=== PATIENT | female | born 1965 | race Caucasian/White ===

== ENCOUNTER → 2017-10-18 | Outpatient (REF) | payer BC ==
[~2017-10-18] MED LIST: ACET-3017 PO; ALPR-429 PO; ALPR-448 PO; AMIT-108 PO; AMOX-559 PO; AZIT-1 PO; AZIT-18 PO; BENZ100C26 PO; BENZ100C4 PO; BUSP15TA69 PO; BUSP7.5T7 PO; CARI250T10 PO; CEFU250T67 PO; CHOL100059 PO; CITA-141 PO; CITA-156 PO; CLON-327 PO; CODE118S5 PO; DIAZ2TAB74 PO; ESC10 PO; ESCI20TA38 PO; ESTR0.5T16 PO; ESTR1PAT18 TD; ESTR1PAT66 TD; ESTR1PAT69 TD; FLUT16SP20 NS; FLUT9.9S; GABA-549 PO; GUAI120L3 PO; HERB1CAP PO; HYDR-385 PO; HYDR-4305 PO; HYDR-4308 PO; IBUP600T22 PO; LEVO-85 PO; LEVO25TA61 PO; LEVO50TA86 PO; LEVO75TA73 PO; LOR5/325 PO; LUTE40CA PO; MELO-205 PO; MELO-207 PO; METF-415 PO; METH4TAB66 PO; MILK140C3 PO; MULT-1101 PO; ONDA4TAB97 PO; OXYC-373 PO; OXYC-823 PO; OXYC-865 PO; PARO10TA80 PO; PREG50CA48 PO; Return to work; SERT-1 PO; TRAM-420 PO; TRAZ-156 PO; TRAZ-163 PO; ZOLP-1 PO; ZOLP-360 PO
[2017-10-18 13:54] LABS: PLATELET COUNT, AUTOMATED 186 K/uL (150-450)
== END ==
PROVIDERS: ATTEND Family Medicine
DX: R10.9 Unspecified abdominal pain (principal)
CPT/HCPCS: 82040; 82247; 82310; 82374; 82435; 82565; 82947; 84075; 84132; 84155; 84295; 84450; 84460; 84520; 85025

== ENCOUNTER → 2017-10-30 | Outpatient (CLI) | payer BC ==
--- NOTE | 2017-10-30 10:17 | RADIOLOGY IMAGING REPORT ---
FACILITY: [facility] - [place] PATIENT NAME: Samantha Salcedo : 1965 MR: [id number] V: [id number] EXAM DATE: ORDERING PHYSICIAN: ROBERTA GOMEZ TECHNOLOGIST: [facility] Patient: Samantha Salcedo : 1965 Visit/Account:[id number] Date of Sevice: 10/30/2017 KNEE LEFT W/O CONTRAST COMPARISON: None. HISTORY: Left knee pain with history of torn meniscus.. TECHNIQUE: Noncontrast multiplanar MRI of the left knee utilizing T1 weighted and fluid sensitive se quences. CONTRAST: None. FINDINGS: FLUID: There is no effusion or Kent's cyst. MENISCI: Abnormal intermediate signal in the posterior horn of the medial meniscus on series 4 image 13, with small components extending to the superior and inferior articular surface, confirmed on cor onal series 5 image 19 and 18. In the absence of a previous surgical history this is consistent with a tear. There is no meniscal extrusion or flipped fragment. The lateral meniscus is intact. TENDONS/LIGAMENTS: The cruciate and medial collateral ligaments, lateral collateral ligamentous comp daphnie and extensor mechanism are intact. The biceps and popliteus tendons are intact. The medial and l ateral retinacula are intact. MUSCLES: There is no muscle atrophy or edema. CARTILAGE: No full-thickness cartilage defects are seen. BONES: Normal marrow signal and alignment. OTHER: Negative. IMPRESSION: 1. There is abnormal signal in the posterior horn of the medial meniscus. In the absence of previous meniscal surgery this is consistent with a tear which has small component extending to the superior and inferior articular surface. 2. Otherwise unremarkable left knee. Report Dictated By: Alvin Dwyer at 10/30/2017 9:43 AM Report E-Signed By: Alvin Dwyer at 10/30/2017 10:12 AM WSN:[id number]
== END ==
LOC: MRI 08:37
PROVIDERS: ATTEND Orthopaedic Surgery
DX: M25.562 Pain in left knee (principal)

== ENCOUNTER → 2018-02-12 | Outpatient (CLI) | payer BC ==
[2018-02-12 13:10] LABS: LDL CHOLESTEROL 70 mg/dl
== END ==
LOC: LAB 12:37
PROVIDERS: ATTEND Nurse Practitioner Primary Care
DX: R73.03 Prediabetes (principal); E78.00 Pure hypercholesterolemia, unspecified; E03.9 Hypothyroidism, unspecified
CPT/HCPCS: 36415; 82040; 82247; 82310; 82374; 82435; 82465; 82565; 82947; 83036; 83718; 84075; 84132; 84155; 84295; 84443; 84450; 84460; 84478; 84520

== ENCOUNTER 2018-04-21 01:16 | Observation (INO) | payer BC ==
[~2018-04-21] VITALS: Ht 165.1 cm; Wt 103.4 kg
[2018-04-21] VITALS (13 sets, daily range): BP systolic 54–159; BP diastolic 41–99
[~2018-04-21 01:16] MED LIST changes: +ESTR0.62 PO; +HYDR-4225 PO; +PRED20TA6 PO; +PROM5SYR PO; -TRAZ-156 PO; -TRAZ-163 PO; +TRAZ100T31 PO; +TRAZ50TA34 PO
[2018-04-21] MEDS ORDERED: FAMOTIDINE 20 MG TAB ONE (05:11)
[2018-04-21] MEDS ORDERED: LIDOCAINE/SOD BICARB 8.4% SYR ID ONE (06:30)
[2018-04-21] MEDS ORDERED: FAMOTIDINE 20 MG/50 ML PREMIX IVPB ONE (06:30)
[2018-04-21] MEDS ORDERED: MIDAZOLAM 2 MG/2 ML VIAL IVP PRN (06:30)
[2018-04-21] MEDS ORDERED: fentaNYL CITR 100 MCG/2 ML AMP ONE ×3 (07:21→12:58)
[2018-04-21] MEDS ORDERED: DEXAMETHASONE SOD 4 MG/ML VIAL ONE (07:21)
[2018-04-21] MEDS ORDERED: ONDANSETRON 4 MG/2 ML VIAL ONE (07:21)
[2018-04-21] MEDS ORDERED: PROPOFOL EMUL(*) 10MG/ML 20 ML 20 ML ONE (07:21)
[2018-04-21] MEDS ORDERED: LIDOCAINE MPF 1% 5 ML VIAL ONE (07:21)
[2018-04-21] MEDS ORDERED: KETAMINE HCL 200 MG/20 ML MDV ONE (07:23)
[2018-04-21 07:36] LABS: PLATELET COUNT, AUTOMATED 167 K/uL (150-450)
[2018-04-21] MEDS: NORMOSOL R SOLN(*) 1000 ML BAG 1,000 ML IV PRN ×2 (07:43→13:02)
[2018-04-21] MEDS ORDERED: ONDANSETRON 4 MG/2 ML VIAL IVP ONE (08:10)
[2018-04-21] MEDS ORDERED: ROPIVACAINE 0.2% 20 ML VIAL ONE (08:19)
[2018-04-21] MEDS ORDERED: NS(*) 0.9% 100 ML BAG 100 ML ONE (08:19)
[2018-04-21] MEDS ORDERED: ESTROGENS CONJ VAG CREAM 30 GM TUBE PV ONE (08:19)
[2018-04-21] MEDS ORDERED: VASOPRESSIN 20 UNIT/ML VIAL ONE (08:19)
[2018-04-21] MEDS ORDERED: ROCURONIUM BROM 10 MG/ML 10 ML ONE (10:15)
[2018-04-21] MEDS ORDERED: HYDROmorphone HCL 2 MG/ML SDV ONE ×3 (10:36→14:09)
[2018-04-21] MEDS ORDERED: NS 0.9% 20 ML SDV 20 ML ONE (10:36)
[2018-04-21] MEDS ORDERED: SUGAMMADEX SOD 500 MG/5 ML SDV ONE (10:39)
[2018-04-21] MEDS ORDERED: INFLUENZA VIRUS VAC 0.5 ML SYR IM ONE (12:45)
[2018-04-21] MEDS ORDERED: ZOLPIDEM TARTRATE 10 MG TAB PO PRN (12:45)
[2018-04-21] MEDS ORDERED: ACETAMINOPHEN 325 MG TAB PO PRN (12:45)
[2018-04-21] MEDS ORDERED: ONDANSETRON 4 MG/2 ML VIAL IV PRN (12:45)
[2018-04-21] MEDS ORDERED: SIMETHICONE 80 MG CHEW CHEW PRN (12:45)
[2018-04-21] MEDS ORDERED: PROMETHAZINE 25 MG/ML 1 ML AMP IVP PRN (12:45)
--- NOTE | 2018-04-21 12:53 | Post Operative Note ---
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 Operative Day Date: Apr 21, 2018 Time: 12:47 Physicians Surgeon: Mark Retail Administrative Assistant: Tamara Marcelino Anesthesia: GETA Diagnosis Pre-Op Diagnosis: Rectocele Cystocele TORY Outlet obstruction constipation Post-Op Diagnosis: Same Enterocele Procedure Findings: enterocele Procedure(s): Uterosacral ligament suspension anterior colporrhaphy posterior colporrhaphy transobturator midurethropexy Specimen Removed:(Maybe N/A): none Complications: none #[id number] Fluids Fluids: 1900 ml Estimated Blood Loss: 200 ml Dictated Date OP Note Dictated: Apr 21, 2018 Time OP Note Dictated: 12:52 Copies to: MARIAH KABA MD, TRAVIS MD Apr 21, 2018 12:53
[2018-04-21] MEDS: KETOROLAC 30 MG/ML VIAL IVP SCH ×2 (13:44→19:40)
--- NOTE | 2018-04-21 14:33 | OPERATIVE REPORT 1 ---
EVENT DATE: April 21, 2018 SURGEON: Evan Flores MD ANESTHESIOLOGIST: Dax Baltazar MD ANESTHESIA: General endotracheal. MAINTENANCE SPECIALIST: Tamara Marcelino PA-C PREOPERATIVE DIAGNOSIS 1. Prior hysterectomy and bilateral salpingo-oophorectomy. 2. Midline cystocele. 3. Rectocele. 4. Stress urinary incontinence. 5. Outlet obstruction constipation. POSTOPERATIVE DIAGNOSIS 1. Prior hysterectomy and bilateral salpingo-oophorectomy. 2. Midline cystocele. 3. Rectocele. 4. Stress urinary incontinence. 5. Outlet obstruction constipation. 6. Enterocele. PROCEDURE PERFORMED 1. Uterosacral ligament suspension (colpopexy). 2. Anterior colporrhaphy. 3. Posterior colporrhaphy. 4. Perineoplasty. 5. Transobturator mid urethropexy. ESTIMATED BLOOD LOSS 200 mL. FLUIDS 1900 mL IV crystalloid. PROCEDURE IN DETAIL The patient was bought to the operating room with a working IV, placed under general endotracheal anesthesia. She was then moved to the dorsal lithotomy position and prepped and draped in usual sterile fashion. The patient's anatomy was inspected. There was a large grade 3 cystocele noted and a grade 2 rectocele. There was also laxity to the mid urethra and obvious stress urinary incontinence, as she was leaking urine around the sphincter. The apex of the vagina appeared to prolapse to the lower one-third of the vagina as well, suggesting enterocele formation. Therefore, it was decided to also perform a uterosacral ligament suspension. The cystocele was demarcated along its midline and the apex of the vagina was incised transversely along the prior scar. The midline incision along the cystocele was performed all the way up to the mid urethra. The vaginal cuff was dissected until I had achieved an intraabdominal presence, dissecting through the parietal peritoneum. This incision was expanded, and bowel was packed away with a moistened laparotomy sponge. A retractor was used to expose the pelvis. The uterosacral ligament was palpable on both sides and transfixed to the ipsilateral vaginal cuff. With a clamp on the vaginal cuff, I was able to palpate the uterosacral ligament along its entirety. With an #0-Vicryl, the uterosacral ligament was again transfixed and shortened to the ipsilateral vaginal cuff, and then performing a high Maxwell's culdoplasty, the uterosacral ligament was grasped on the left side, traversed over to the patient's right side, in likewise fashion grasping the uterosacral ligament and then grabbing peritoneal bites along the posterior surface to perform an external Maxwell's stitch in the posterior fourchette of the vagina. The same procedure was followed on the contralateral side, transfixing the ipsilateral vaginal cuff to the uterosacral ligament and taking a bite along the uterosacral ligament on the left side high within the pelvis to shorten the uterosacral ligament, traversing over to the other side and then repeating the aforementioned grasp of the uterosacral ligament and making obliterative bites of the posterior peritoneum to make the external Maxwell's stitch in that location. These were tagged for later identification, and the parietal peritoneum was closed at the vaginal cuff. Attention was then turned to the anterior repair, in which the vaginal mucosa was dissected away from the endopelvic fascia along the length of the defect. The defect was reduced with a pursestring stitch followed by Yessenia plication stitches along the length of its entirety, repairing the bladder defect. Upon completion, the excess vaginal mucosa was trimmed away, and the vaginal repair was performed with a 2-0 Vicryl in a running locking stitch. Attention was then turned to the posterior repair, and perineoplasty, in which a shital-shaped wedge resection of the perineum was performed followed by linear incision along the length of the posterior defect. The vaginal mucosa was dissected away from endopelvic fascia, and excess vaginal mucosa was trimmed away. Yessenia plication stitches were performed along the length of the defect in a linear fashion first , and then with a finger in the rectum. Site specific repair was performed until an excellent endopelvic reconstruction was performed. Gloves were changed , and the repair was performed along the length of its entirety with 2-0 Vicryl in a running locking stitch, and then the perineal body was repaired as is typical for second-degree obstetrical repair. Upon completion, there was excellent reconstruction in the posterior compartment of the vagina. Attention was then turned to the sling, in which the mid urethra was identified with assistance of the Hassan catheter. A 3 cm segment of mid urethra was grasped with Allis clamps and infiltrated with local anesthetic. A linear incision was made along the length of the mid urethra, and then dissected laterally with the assistance of the tenotomy scissors at a 45 degree angle. This was after placing the legs at a 45 degree angle as well. Puncture incisions were made over the transobturator fossa, palpable extracorporeally and at the level of the clitoris. The hooks were then passed through these incisions through the transobturator membrane, approximating against the medial rami of the transobturator, rotated to 45 degrees, and continued along its travel to the vaginal dissection. The sling was attached and drawn back through, leaving the blue introducers intracorporeal. The same procedures were followed on the contralateral side. Hassan catheter was removed, and cystoscopy was performed. The entire bladder was inspected and found to be without injury. Both ureteral orifices were inspected and found excellent urine jets on both sides. No visible complications. Bladder was drained. Hassan catheter was replaced. The sling was approximated against the urethra with a [place] clamp, securing approximately 1 cm segment of the mesh to use as tensioning. The sleeves were removed. The [place] clamp was removed, and the tension was adjusted to allow curved Curtis scissor to easily pass beneath the sling material. Vaginal repair was then performed with 2-0 Vicryl in running locking stitch. No visible complications. The vagina was packed with a Kerlix sponge moistened with Premarin cream. She was taken to recovery in stable condition. She tolerated the procedure well. Sponge, lap, needle and instrument counts were all correct x three. [facility]
[2018-04-21] MEDS: HYDROmorphone HCL 2 MG TAB PO PRN ×2 (16:14→20:21)
[2018-04-21] MEDS: DLR(*) 1000 ML BAG 1,000 ML IV PRN ×2 (16:15→23:04)
[2018-04-21] MEDS: DOCUSATE CALCIUM 240 MG CAP PO SCH (20:20)
[2018-04-21] MEDS: FAMOTIDINE 20 MG TAB PO SCH (20:20)
[2018-04-21] MEDS: HYDROmorphone PCA 6 MG/30 ML IV PRN (23:04)
[2018-04-22] MEDS: KETOROLAC 30 MG/ML VIAL IVP SCH (02:50)
[2018-04-22 03:00] VITALS: BP 119/79
[2018-04-22 06:33] LABS: PLATELET COUNT, AUTOMATED 123 K/uL (150-450)
[2018-04-22 08:00] VITALS: BP 124/84
--- NOTE | 2018-04-22 08:24 | OB/GYN Progress Note ---
OB Subjective Progress Notes Subjective c/o low back pain and cramping at times severe. 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 No doubt the colporrhaphy is also painful. She reports a history of chronic back pain and oxycodone use at home so may not be narcotic naive. Will try to wean back to orals today. Up to BR later when doyle is out. Bladder training today. MAIRAH KABA MD Apr 22, 2018 08:24
[2018-04-22] MEDS: ESTROGENS CONJ 0.625 MG TAB PO SCH (09:26)
[2018-04-22] MEDS: DOCUSATE CALCIUM 240 MG CAP PO SCH ×2 (09:26→21:18)
[2018-04-22] MEDS: FAMOTIDINE 20 MG TAB PO SCH ×2 (09:26→21:19)
[2018-04-22] MEDS: HYDROmorphone PCA 6 MG/30 ML IV PRN (10:16)
[2018-04-22 10:37] VITALS: Ht 165.1 cm; Wt 103.4 kg
[2018-04-22 11:20] VITALS: BP 132/78
[2018-04-22] MEDS: IBUPROFEN 800 MG TAB PO PRN ×2 (11:50→21:19)
[2018-04-22] MEDS: DLR(*) 1000 ML BAG 1,000 ML IV PRN (12:06)
[2018-04-22 16:05] VITALS: BP 114/73
[2018-04-22] MEDS: HYDROmorphone HCL 2 MG TAB PO PRN ×2 (16:43→21:19)
[2018-04-22 20:11] VITALS: BP 137/73
[2018-04-22] MEDS ORDERED: IOPAMIDOL 76% 100 ML INFUS BTL 100 ML ONE (23:23)
[2018-04-22 23:50] VITALS: BP 158/104
[2018-04-22 23:57] LABS: PLATELET COUNT, AUTOMATED 128 K/uL (150-450)
[2018-04-23] MEDS ORDERED: HYDROmorphone HCL 2 MG TAB PO PRN (00:55)
[2018-04-23] MEDS ORDERED: MEPERIDINE 50 MG/ML SYR IM ONE ×2 (00:55→01:15)
--- NOTE | 2018-04-23 01:10 | OB/GYN Progress Note ---
OB Subjective Progress Notes Subjective Report from nursing that pain control is an issue, 05/21. Pt ambulating to BR and urine output picking up recently (mostly 800 ml over the last 4 hours). Voided 450 ml with 300 ml residual so doyle catheter replaced to gravity. CBC stable, vitals stable. Apparent history of chronic narcotic use for back pain I was not aware of. OB Objective Physical Exam Vital Signs Date Time Temp Pulse Resp B/P (MAP) Pulse Ox O2 Delivery O2 Flow Rate FiO2 04/22/18 20:11 98.4 20 137/73 (94) Nasal Cannula 1.0 04/22/18 16:07 91 04/22/18 16:05 86 General Appearance: Alert/Awake/No Acute Distress : Other (vaginal packing removed, old moderately soaked) Psychological: Alert & Oriented X3, Appropriate Mood & Affect Result Diagram: 04/22/18 2348 04/22/18 2348 Assessment and Plan Problems: (1) Postoperative state Assessment & Plan: status post A&P repair/sling. Having CT scan to r/o hematoma or other abdominal complication but suspecting underdosing narcotics. Will adjust and continue to work on pain control. MARIAH KABA MD Apr 23, 2018 01:10
[2018-04-23] MEDS ORDERED: PROMETHAZINE 50 MG/ML 1 ML AMP IM ONE (01:15)
--- NOTE | 2018-04-23 01:26 | RADIOLOGY IMAGING REPORT ---
FACILITY: [facility] - [place] PATIENT NAME: Samantha Salcedo : 1965 MR: [id number] V: [id number] EXAM DATE: ORDERING PHYSICIAN: MARIAH KABA TECHNOLOGIST: Location: [facility] Patient: Samantha Salcedo : 1965 Visit/Account:[id number] Date of Sevice: 04/22/2018 PELVIS W CONTRAST HISTORY: post surgical pain and voiding complications ADDITIONAL HISTORY: None. TECHNIQUE: Axial CT images were obtained through the pelvis with intravenous contrast. One of the fol lowing dose optimization techniques was utilized in the performance of this exam: automated exposure control; adjustment of the mA and/or kv according to patient size; or use of iterative reconstruction technique. Specific details can be referenced in the facility's radiology CT exam operational policy . CONTRAST: 75 cc of Isovue-370 COMPARISON: CT abdomen and pelvis 08/05/2017 FINDINGS: Pelvic genitourinary: Prior bilateral ovarian cysts are not seen. Ovaries have likely been surgically removed. Stable 1.6 x 1.0 cm cystic structure within the right pelvis (image 55). Hassan catheter wit hin the urinary bladder. Stable prominence of the soft tissues at the vagina and surrounding the uret hra. Bowel/peritoneum/mesentery: Negative. Vessels: Negative. Lymph nodes: Negative. Bones/body wall: L4-L5 fusion hardware. Tiny foci gas within soft tissues at the left perineum witho ut fluid collection. Other findings: None significant IMPRESSION: 1. Probable postoperative changes from bilateral oophorectomy. No concerning postoperative fluid daphney ection. 2. Hassan catheter within the urinary bladder. Report Dictated By: Jose Luis Thomas MD at 04/23/2018 1:16 AM Report E-Signed By: Jose Luis Thomas MD at 04/23/2018 1:22 AM WSN:[id number]
[2018-04-23 02:30] VITALS: BP 144/91
[2018-04-23] MEDS: HYDROmorphone HCL 2 MG TAB PO PRN ×4 (03:27→20:56)
[2018-04-23] MEDS: LEVOTHYROXINE SOD 0.075 MG TAB PO SCH (05:54)
[2018-04-23 06:40] VITALS: BP 125/71
[2018-04-23] MEDS: DOCUSATE CALCIUM 240 MG CAP PO SCH ×2 (08:20→20:55)
[2018-04-23] MEDS: FAMOTIDINE 20 MG TAB PO SCH ×2 (08:20→20:55)
[2018-04-23] MEDS: ESTROGENS CONJ 0.625 MG TAB PO SCH (08:21)
[2018-04-23] MEDS ORDERED: LACTULOSE 10 GM/15 ML UDCUP PO ONE (10:45)
--- NOTE | 2018-04-23 10:53 | OB/GYN Progress Note ---
OB Subjective Progress Notes Subjective Improved compared to overnight. Pain control at least half better. CT scan was clear, no sign of complications or ureter issues. Doyle still to dependent drainage. [place] is nervous about going home today for fear she may not do well. GI: NEG Nausea Pain: Moderate OB Objective Physical Exam Vital Signs Date Time Temp Pulse Resp B/P (MAP) Pulse Ox O2 Delivery O2 Flow Rate FiO2 04/23/18 06:40 97.8 78 18 125/71 (89) 92 Nasal Cannula 1.0 General Appearance: Alert/Awake/No Acute Distress Cardiovascular: Normal Rhythm & Peripheral Pulses, Regular Rate and Rhythm Respiratory: No Respiratory Distress, Clear to Auscultation Abdomen: Soft, Non-Tender, Non-Distended : Other (vaginal packing removed, old moderately soaked) Extremities: Edema (2+) Integumentary: Skin Intact without Lesions or Rash Psychological: Alert & Oriented X3, Appropriate Mood & Affect Result Diagram: 04/22/18 2348 04/22/18 2348 Assessment and Plan Problems: (1) Postoperative state Assessment & Plan: Will leave doyle in place and remove next week in office. Will continue to catch up pain control today and plan discharge tomorrow if continues well. Encouraging ambulation today and bowel stimulation. MARIAH KABA MD Apr 23, 2018 10:53
[2018-04-23 15:49] VITALS: BP 147/84
[2018-04-23 19:37] VITALS: BP 147/84
[2018-04-23 22:37] VITALS: BP 144/80
[2018-04-24] MEDS: HYDROmorphone HCL 2 MG TAB PO PRN ×3 (02:39→13:11)
[2018-04-24 03:08] VITALS: BP 134/76
[2018-04-24] MEDS: LEVOTHYROXINE SOD 0.075 MG TAB PO SCH (05:46)
[2018-04-24 06:36] LABS: PLATELET COUNT, AUTOMATED 134 K/uL (150-450)
[2018-04-24 07:11] VITALS: BP 135/78
[2018-04-24] MEDS: ESTROGENS CONJ 0.625 MG TAB PO SCH (07:56)
[2018-04-24] MEDS: DOCUSATE CALCIUM 240 MG CAP PO SCH (07:56)
[2018-04-24] MEDS: FAMOTIDINE 20 MG TAB PO SCH (07:56)
--- NOTE | 2018-04-24 10:57 | OB/GYN Progress Note ---
OB Subjective Progress Notes Subjective Pain controlled, Tolerating diet and activity. GI: POS Flatus, NEG Nausea, NEG Vomiting Pain: Mild OB Objective Physical Exam Vital Signs Date Time Temp Pulse Resp B/P (MAP) Pulse Ox O2 Delivery O2 Flow Rate FiO2 04/24/18 07:11 98.0 75 16 135/78 (97) 92 Room Air 04/23/18 06:40 1.0 Intake and Output 04/25/18 07:00 Intake Total 800 ml Balance 800 ml Intake Oral 800 ml General Appearance: Alert/Awake/No Acute Distress Cardiovascular: Normal Rhythm & Peripheral Pulses, Regular Rate and Rhythm Respiratory: No Respiratory Distress, Clear to Auscultation Abdomen: Soft, Non-Tender, Non-Distended, Bowel Sounds Present : Other (vaginal packing removed, old moderately soaked) Extremities: Edema (2+) Integumentary: Skin Intact without Lesions or Rash Psychological: Alert & Oriented X3, Appropriate Mood & Affect Result Diagram: 04/24/18 0619 04/22/18 2348 Assessment and Plan Post Op Day: 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 LIA CHINCHILLA MD Apr 24, 2018 10:57
[2018-04-24] MEDS ORDERED: OXYC-373 PO (10:58)
[2018-04-24] MEDS ORDERED: HYDR2TAB4 PO (10:58)
--- NOTE | 2018-04-24 11:01 | OB/GYN Discharge Summary ---
Discharge Summary Reason for Hosp/Final Diag: (1) Postoperative state Hospital Course & Plan: anterior and posterior repair performed with sling, difficulty getting pain controlled with history of chronic pain, on day 3, Pain controlled, Tolerating diet and activity. Lates Vital Signs Vital Signs Date Time Temp Pulse Resp B/P (MAP) Pulse Ox O2 Delivery O2 Flow Rate FiO2 04/24/18 07:11 98.0 75 16 135/78 (97) 92 Room Air 04/23/18 06:40 1.0 Weight (Pounds): 228 Result Diagram: 04/24/18 0619 04/22/18 2348 Condition: Improved Discharge: Home, Self [facility] Meds Active Scripts Oxycodone Hcl/Acetaminophen (OXYCODONE-ACETAMINOPHEN 5-325) 1 Each Tablet, 1-2 EACH PO Q4H Y for PAIN, #30 TAB 0 Refills TAKE 1-2 TABLET NEEDED FOR PAIN - NO CLOSER THAN EVERY 4 HOURS. Prov:LIA CHINCHILLA MD 04/24/18 Hydromorphone Hcl (HYDROMORPHONE HCL) 2 Mg Tablet, 2-4 MG PO Q4H for PAIN, #20 TAB 0 Refills Prov:LIA CHINCHILLA MD 04/24/18 Levothyroxine Sodium (LEVOTHYROXINE SODIUM) 75 Mcg Tablet, 1 TAB PO QDAY, #90 TAB 1 Refill Prov:MEMO DOTSON DNP, VETERINARY SURGEON-BC 02/03/18 Reported Medications Estrogens, Conjugated 0.625 Mg Tab (PREMARIN 0.625 MG TAB) 0.625 Mg Tablet, 0.625 MG PO QDAY, TAB 04/09/18 Follow up with: Dr. Flores [phone] Follow up in: 5-7 days Discharge Diet: As Tolerates Discharge Activity: Pelvic Rest Copies to: LIA CHINCHILLA MD, JOHN MD Apr 24, 2018 11:01
[2018-04-24] MEDS ORDERED: IBUP800T37 PO (11:03)
== END 2018-04-24 10:58 | disposition home or self-care (01) ==
LOC: OR 01:16 → PED 14:40
PROVIDERS: ADMIT Obstetrics & Gynecology; ATTEND Obstetrics & Gynecology
DX: N81.11 Cystocele, midline (principal); N81.6 Rectocele; N39.3 Stress incontinence (female) (male); K59.02 Outlet dysfunction constipation
CPT/HCPCS: 36415; 57260; 57283; 72193; 85014; 85018; 85025; 96372; C1771; G0378; J1100; J1170; J1885; J2001; J2175; J2250; J2405; J2550; J2704; J2795; J3010; J3490; J7050; Q9967; 82040; 82247; 82310; 82374; 82435; 82565; 82947; 84075; 84132; 84155; 84295; 84450; 84460; 84520